=== PATIENT | male | born 1990 | race Caucasian/White ===

== ENCOUNTER 2018-08-23 12:14 | Emergency (ER) | payer OTHER ==
[~2018-08-23] VITALS: Ht 177.8 cm; Wt 77.1 kg
[2018-08-23] MEDS ORDERED: KETOROLAC TROMETHAMINE INJ 30 MG/ML VIAL ONE (12:48)
[2018-08-23] MEDS: KETOROLAC TROMETHAMINE INJ 60 MG/2 ML VIAL IM ONE (12:52)
--- NOTE | 2018-08-23 12:55 | NUR ---
patient presented to the ER c/o lower back pain. On room air, breathing evenly and unlabored. Kept comfortable, will continue to monitor accordingly.
[2018-08-23 13:06] VITALS: BP 113/67
--- NOTE | 2018-08-23 13:09 | NUR ---
Patient discharged to home in stable condition. Written and verbal after care instructions given. Patient verbalizes understanding of instruction.
== END 2018-08-23 13:08 | disposition home or self-care (01) ==
LOC: ER 12:23
DX: M54.5 Low back pain (principal); M54.17 Radiculopathy, lumbosacral region; Z90.89 Acquired absence of other organs; Z98.890 Other specified postprocedural states
CPT/HCPCS: 96372; 99283; J1885

== ENCOUNTER 2019-11-20 18:24 | Emergency (ER) | payer OTHER ==
[~2019-11-20] VITALS: Ht 177.8 cm; Wt 77.1 kg
--- NOTE | 2019-11-20 18:44 | NUR ---
Patient eys open able to responsed stated i need help go back to [facility] @ bedside
[2019-11-20] MEDS ORDERED: IV NS 0.9% 1,000 ML BAG IV ONE (19:00)
[2019-11-20] MEDS ORDERED: ONDANSETRON HCL/PF 4 MG/2 ML VIAL IVP ONE (19:00)
[2019-11-20] MEDS ORDERED: LORAZEPAM INJ 2 MG/ML VIAL IVP ONE (19:00)
--- NOTE | 2019-11-20 19:01 | NUR ---
ADDENDUM: Intravenous End Time Documentation: Normal saline 1 liter (IV-WO) : start time: 1900 PM ; end time:2000 PM : IV site: [facility] PIV # 20 Port # 1
[2019-11-20] MEDS ORDERED: ONDANSETRON HCL/PF 4 MG/2 ML VIAL ONE (19:03)
[2019-11-20] MEDS ORDERED: LORAZEPAM INJ 2 MG/ML VIAL ONE (19:03)
[2019-11-20 19:07] LABS: BASOPHILS # (AUTO) 0.1 /CMM (0.0-0.2); BASOPHILS % (AUTO) 0.7 % (0.0-2.0); HEMATOCRIT 47 % (39-51); HEMOGLOBIN 15.9 g/dL (13.5-17.5); LYMPHOCYTES # (AUTO) 1.8 /CMM (0.8-4.8); LYMPHOCYTES % (AUTO) 18.2 % (20.0-44.0); MEAN CORPUSCULAR HGB CONC 34 g/dl (31.0-36.0); MEAN CORPUSCULAR VOLUME 90 fL (80-96); MONOCYTES # (AUTO) 1.3 /CMM (0.1-1.30); MONOCYTES % (AUTO) 12.9 % (2.0-12.0); NEUTROPHILS # (AUTO) 6.8 /CMM (1.8-8.9); NEUTROPHILS % (AUTO) 67.2 % (43.0-81.0); PLATELET COUNT (AUTO) 242 /CMM (150-450); RED BLOOD CELL COUNT(AUTO) 5.17 MIL/uL (4.5-6.0); WHITE BLOOD COUNT (AUTO) 10.1 K/uL (4.3-11.0)
[2019-11-20 19:09] LABS: APPEARANCE,URINE Slightly Cloudy (CLEAR); BILIRUBIN,URINE Negative (NEGATIVE); BLOOD, URINE Negative Ery/uL (NEGATIVE); COLOR,URINE Yellow (YELLOW); KETONES,URINE Negative (NEGATIVE); LEUKOCYTE ESTERASE ,URINE Negative (NEGATIVE); NITRITE, URINE Negative (NEGATIVE); PROTEIN,URINE Negative (NEGATIVE); UGLUCOSE Negative (NEGATIVE); UROBILINOGEN,URINE 0.2 EU/dL (0.2)
--- NOTE | 2019-11-20 19:10 | NUR ---
TOOK OVER PT CARE. PT AAOX4. PLACED IN BED 11, ON MONITOR, AND PULSE OX. PT STATED HE WENT TO [facility] BUT THEIR SYSTEM WAS DOWN. PT THEN CAME TO [facility] TO BE "TREATED." UPON ASSESSMENT RR EVEN AND UNLABORED, PT STATED NO PAIN. WILL CONTINUE TO MONITOR.
[2019-11-20 19:12] LABS: BACTERIA,URINE Few /HPF (None Seen); RBC,URINE 0-2 /HPF (0-2); SQUAMOUS EPITHELIAL CELL,UR Few /HPF (None Seen); WBC,URINE 0-2 /HPF (0-3)
--- NOTE | 2019-11-20 19:12 | NUR ---
PT BROUGHT TO CT
[2019-11-20 19:13] LABS: URINE AMORPHOUS URATE Few /HPF (None Seen)
--- NOTE | 2019-11-20 19:19 | NUR ---
PT AMBUALTED TO THE RESTROOM WITH STEADY GAIT.
--- NOTE | 2019-11-20 19:19 | NUR ---
BACK FROM CT
[2019-11-20 19:49] LABS: CALCIUM, SERUM 9.2 mg/dL (8.5-10.1); CREATININE 1.1 mg/dL (0.6-1.3)
[2019-11-20 19:50] LABS: ALBUMIN 4.3 g/dL (3.4-5.0); BILIRUBIN,DIRECT 0.1 mg/dL (0.0-0.2); BILIRUBIN,TOTAL 0.5 mg/dL (0.2-1.0); TOTAL PROTEIN, SERUM 7.6 g/dL (6.4-8.2)
[2019-11-20 19:51] LABS: SALICYLATE 2.3 mg/dL (2.8-20.0)
[2019-11-20 19:59] LABS: POTASSIUM 4.2 mmol/L (3.5-5.1)
--- NOTE | 2019-11-20 20:01 | NUR ---
PT AMBUALATING AROUND THE E.D. STATING "YOU VICKI ARE NO HELP"
--- NOTE | 2019-11-20 20:18 | NUR ---
PT PULLED OUT IV.
--- NOTE | 2019-11-20 20:22 | NUR ---
Patient does not wish to proceed with medical care recommended by Dr. Katz. Patient given information related to possible complications, up to and including , which could occur as a result of leaving the hospital at this time. Patient verbalizes understanding of risks involved due to leaving against medical advice. Patient has signed AMA form.
[2019-11-20 20:23] VITALS: BP 137/75
== END 2019-11-20 20:24 | disposition home or self-care (01) ==
LOC: ER 18:29
DX: F10.129 Alcohol abuse with intoxication, unspecified (principal); F19.10 Other psychoactive substance abuse, uncomplicated; R11.10 Vomiting, unspecified; R51 Headache; F20.9 Schizophrenia, unspecified; Y90.8 Blood alcohol level of 240 mg/100 ml or more; Z90.89 Acquired absence of other organs; Z98.890 Other specified postprocedural states
CPT/HCPCS: 36415; 70450; 80048; 80076; 80305; 80307; 80329; 81001; 85025; 96361; 96374; 96375; 99284; G0480; J2060; J2405; J7030; 81000-TC